=== PATIENT | female | born 1975 | race Caucasian/White ===

== ENCOUNTER 2017-06-01 11:22 | Emergency (ER) | payer BC ==
[~2017-06-01] VITALS: Ht 157.5 cm; Wt 74.0 kg
[~2017-06-01 11:22] MED LIST: RANI150T9 PO
[2017-06-01 11:26] VITALS: Ht 157.5 cm; Wt 74.0 kg
[2017-06-01 12:00] LABS: URINE BLOOD (Dip) POC Negative (NEGATIVE)
[2017-06-01] MEDS ORDERED: HYDROCODONE/APAP (5/325) TAB PO ONE (12:00)
--- NOTE | 2017-06-01 12:22 | RADRPT ---
PROCEDURE: US Pelvis CLINICAL INDICATION: Pelvic pain. TECHNIQUE: Transabdominal and transvaginal sonographic evaluation of the pelvis was performed. COMPARISON: None. FINDINGS: Myometrium is homogeneous in echotexture without fibroids. Endometrium is normal in thickness without a focal abnormality. Normal flow to both ovaries. No adnexal mass. No free pelvic fluid. MEASUREMENTS: Uterus: 10.9 x 4.9 x 6.4 cm, anteverted. Endometrium: 0.8 cm. Right ovary size: 3.8 x 2.6 x 3.0 cm Left ovary size: 4.3 x 3.5 x 4.1 cm IMPRESSION: Unremarkable ultrasound of the pelvis. RPTAT: EE .Sadi Najera MD, Date Time Electronically viewed and signed by .Sadi Najera MD, MD on 06/01/2017 12:27 .C/
--- NOTE | 2017-06-01 12:33 | ERD ---
ER Documentation Chief Complaint Date/Time DATE: 06/01/17 TIME: 12:31 Chief Complaint LEFT PELVIC PAIN X2 DAYS, DENIES BLEEDING OR HPI This is a 41-year-old female who presents the emergency department today complaining of left-sided pelvic pain for the past 3 days. States that Friday she went to urgent care and was told that she may have a problem with her uterus or her ovaries. States that prior to the pain was really bad but has improved today. Denies any fevers or chills, vomiting, constipation, vaginal bleeding or vaginal discharge ROS All systems reviewed and are negative except as per history of present illness. Medications Home Meds Active Scripts Naproxen* (Naprosyn*) 500 Mg Tablet, 500 MG PO BID Y for PAIN AND/OR INFLAMMATION, #30 TAB Prov:GABY MARTINEZ PA-C 06/01/17 Ranitidine Hcl* (Zantac*) 150 Mg Tablet, 150 MG PO BID Y for epigastric pain, # 30 TAB Prov:MAHSA HOCLOMB NP 04/26/15 Allergies Allergies: Coded Allergies: No Known Allergies (Verified Allergy, Unknown, 06/01/17) PMhx/Soc History of Surgery: Yes (C SECTION ) Hx Miscellaneous Medical Probl: Yes (GASTRITIS ) Hx Alcohol Use: No Hx Substance Use: No Hx Tobacco Use: No Smoking Status: Never smoker Physical Exam Vitals Vital Signs Date Time Temp Pulse Resp B/P Pulse Ox O2 Delivery O2 Flow Rate FiO2 06/01/17 11:26 99.1 85 18 139/91 99 Physical Exam Const: NAD Head: Atraumatic Eyes: Normal Conjunctiva ENT: Normal External Ears, Nose and Mouth. Neck: Full range of motion..~ No meningismus. Resp: Clear to auscultation bilaterally Cardio: Regular rate and rhythm, no murmurs Abd: Soft,lower left sided pelvic tenderness non distended. Normal bowel sounds. No tenderness at McBurneys' Skin: No petechiae or rashes Back: No midline or flank tenderness Ext: No cyanosis, or edema Neur: Awake and alert Psych: Normal Mood and Affect Results 24 hrs Laboratory Tests Test 06/01/17 12:06 Bedside Urine pH (LAB) 5.5 Bedside Urine Protein (LAB) Negative Bedside Urine Glucose (UA) Negative Bedside Urine Ketones (LAB) Negative Bedside Urine Blood Negative Bedside Urine Nitrite (LAB) Negative Bedside Urine Leukocyte Esterase (L Negative Current Medications Medications (Trade) Dose Ordered Sig/Jewel Route PRN Reason Start Time Stop Time Status Last Admin Dose Admin Acetaminophen/ Hydrocodone Bitart (Branch (5/325)) 1 tab ONCE ONCE PO 06/01/17 12:00 06/01/17 12:01 DC 06/01/17 11:54 DIAGNOSTIC IMAGING REPORT Patient: ASHLEE MEHTA : 1975 Age: 41 Sex: F MR #: [id number] DOS: 06/01/17 0000 Ordering MD: GABY MARTINEZ PA-C Location: [facility] Room/Bed: PROCEDURE: US Pelvis CLINICAL INDICATION: Pelvic pain. TECHNIQUE: Transabdominal and transvaginal sonographic evaluation of the pelvis was performed. COMPARISON: None. FINDINGS: Myometrium is homogeneous in echotexture without fibroids. Endometrium is normal in thickness without a focal abnormality. Normal flow to both ovaries. No adnexal mass. No free pelvic fluid. MEASUREMENTS: Uterus: 10.9 x 4.9 x 6.4 cm, anteverted. Endometrium: 0.8 cm. Right ovary size: 3.8 x 2.6 x 3.0 cm Left ovary size: 4.3 x 3.5 x 4.1 cm IMPRESSION: Unremarkable ultrasound of the pelvis. RPTAT: EE .Said Najera MD, MD Date Time Electronically viewed and signed by .Sadi Najera MD, MD on 06/01/2017 12:27 .C/ CC: GABY MARTINEZ PA-C Procedures/MDM This is a 41-year-old female presents the emergency department today complaining of left-sided pelvic pain for the past couple of days. Given patient's location of pain and did obtain a UA and test and ultrasound UA is negative for infection. test is negative Ultrasound is unremarkable. There is normal flow to both ovaries. There is no adnexal mass. No pelvic free fluid. There is no evidence of fibroids. Patient has no left lower quadrant pain and I have low suspicion for diverticulitis, acute surgical abdomen.Low suspicion for ectopic , tubo -ovarian abscess, ovarian torsion. Patient is afebrile and otherwise well- appearing. Denies any vaginal discharge or vaginal bleeding. Patient has left- sided pelvic pain of uncertain etiology. I have explained this to the patient. 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 Patient was given a Branch here in the emergency department and pain improved. Patient will be given a prescription for Naprosyn for home. At this time the patient is stable for discharge and outpatient management. Patient should follow up with their PCP in the next 1-2 days. They may return to the emergency department sooner for any persistent or worsening of symptoms. Patient understood and agreed with the plan. Departure Diagnosis: Primary Impression: Pelvic pain Condition: Fair GABY MARTINEZ PA-C Jun 01, 2017 12:33
[2017-06-01] MEDS ORDERED: NAPR-260 PO (12:55)
== END 2017-06-01 13:20 | disposition home or self-care (01) ==
LOC: FTE 11:22
DX: R10.2 Pelvic and perineal pain (principal)
CPT/HCPCS: 76830; 76856; 81003